=== PATIENT | female | born 1980 | race Caucasian/White ===

== ENCOUNTER 2018-02-26 12:47 | Outpatient (CLI) | payer BC, OTHER ==
--- NOTE | 2018-02-26 14:58 | ULT ---
COMPLETE ABDOMEN ULTRASOUND: INDICATION: Abdominal pain. FINDINGS: The visualized aorta, IVC, and visualized pancreas are unremarkable. The liver demonstrates no focal hepatic lesion. The spleen measures 10 cm. The gallbladder is antolin l-appearing. No sonographic Gresham's sign is reported. Common bile duct measures 3 mm. The right k idney measures 11 x 5.3 x 3.9 cm. The left kidney measures 11.8 x 5.7 x 5.5 cm. IMPRESSION: No acute sonographic abnormality. POS: [facility]
--- NOTE | 2018-02-26 15:16 | ULT ---
TRANSABDOMINAL AND TRANSVAGINAL PELVIS ULTRASOUND: INDICATIONS: History of pelvic pain. TECHNIQUE: Syed-scale, color Doppler, and spectral Doppler images were obtained of the pelvis via a transabdomin al and transvaginal approach. FINDINGS: The uterus measures 7.8 x 5.3 x 4.4 cm. The endometrial stripe measures 1.4 cm, which is within norm al limits for a premenopausal female. There are mildly prominent varicosities seen within the wall o f the uterus, which can be seen in a post gravid uterus. The right ovary measures 3.6 x 1.9 x 1.7 cm. The left ovary measures 3.4 x 2.3 x 2.6 cm. There is n ormal vascular flow to both ovaries. No free fluid is evident. IMPRESSION: Normal sonographic appearance of the pelvis. POS: [facility]
== END 2018-02-26 12:48 | disposition home or self-care (01) ==
LOC: ULT 12:47
PROVIDERS: ATTEND Physician Assistant
DX: R10.2 Pelvic and perineal pain (principal); R10.9 Unspecified abdominal pain
CPT/HCPCS: 76700; 76856